=== PATIENT | male | born 1950 | race African-American/Black ===

== ENCOUNTER 2018-06-28 10:15 | Emergency (ER) | payer OTHER ==
[2018-06-28 11:04] LABS: #Monocytes 0.4 thou/uL (0.11-0.59); #Neutrophils 4.9 thou/uL (1.40-6.50); %Basophils 0.6 % (0.0-1.0); %Eosinophils 0.6 % (0.0-10.0); %Lymphocytes 16.2 % (21.0-51.0); %Monocytes 6.1 % (0.0-10.0); %Neutrophils 76.5 % (42.0-75.0); Hemoglobin 15.2 g/dL (14.0-18.0); Mean Corpuscular Hemoglobin 28.1 pg (27.0-31.0); Mean Corpuscular Volume 85.3 fL (78.0-98.0); Mean Platelet Volume 7.3 fL (7.4-10.4); Platelet Count 195 thou/uL (130-400); RBC Distribution Width 11.9 % (11.5-14.5); Red Blood Cell (RBC) Count 5.42 mill/uL (4.70-6.10); White Blood Cell (WBC) Count 6.4 thou/uL (4.8-10.8)
[2018-06-28 11:14] LABS: PTT 25.8 SEC (22.9-36.1); Prothrombin Time 12.8 SEC (12.0-14.7)
[2018-06-28 12:03] LABS: ALT (SGPT) 58 U/L (8-55); AST (SGOT) 45 U/L (5-34); Albumin 3.8 g/dL (3.4-4.8); Alkaline Phosphatase 116 U/L (40-150); Anion Gap 12 mmol/L (10-20); BUN (Urea Nitrogen) 14 mg/dL (8.4-25.7); Bilirubin, Total 1.3 mg/dL (0.2-1.2); Calc. Creatinine Clearance 0 mL/min (70-130); Calcium 8.9 mg/dL (7.8-10.44); Carbon Dioxide 24 mmol/L (23-31); Chloride 105 mmol/L (98-107); Estimated GFR-MDRD 79; Globulin 3.2 g/dL (2.4-3.5); Glucose 187 mg/dL (80-115); Potassium 4.3 mmol/L (3.5-5.1); Sodium 137 mmol/L (136-145)
--- NOTE | 2018-06-28 12:21 | CT ---
CT OF THE BRAIN WITHOUT CONTRAST: INDICATION: A 68-year-old male with slurred speech and inability to follow commands. FINDINGS: There is a triangular-shaped area of heterogeneous hypodensity within the left parietal region best s een on image 92 series 2 suspicious for a subacute cortically based infarct. This is seen on images 21 through 15 of series 2. This is superimposed on moderate chronic small-vessel white matter ischem ic change. There is a remote lacunar infarct involving the left paramedian haily. There is mild gener alized cerebral atrophy. Septum pellucidum and third ventricle are midline. No definite acute intra cranial hemorrhage or hydrocephalus is present. The skull is intact. IMPRESSION: 1. Subacute-appearing infarct involving the left parietal lobe. MRI examination is recommended for further evaluation. 2. Severe chronic small-vessel white matter ischemic change with a paramedian lacunar infarct involv ing the left aspect of the haily. 3. Mild generalized cerebral atrophy. POS: [facility]
[2018-06-28 12:32] LABS: Bilirubin Small (Negative); Blood, Urine Negative (Negative); Clarity CLEAR (Clear); Glucose, Urine (Dipstick) Negative (Negative); Leukocyte Negative (Negative); Nitrite Negative (Negative); Protein, Urine (Dipstick) 300 mg/dL (Neg-Trace); Specific Gravity, Urine 1.018 (1.002-1.036); pH, Urine 5.5 (5.0-9.0)
[2018-06-28 12:35] LABS: Pathc Cast-AUWi Flag 3.63 (0-2.49); RBC/HPF 0-3 HPF (0-3); Squamous Epithelial 0-3 HPF (0-3)
[2018-06-28 12:50] LABS: Bacteria/HPF 1+ HPF (None Seen); Hyaline Casts/LPF 0-3 HYALINE CAST LPF (0-3 Hyaline); Manual Microscopic Reviewed? No Path Casts Seen; Renal Epithelial None Seen HPF (0-3); Transitional Epithelial NONE SEEN HPF (0-3)
--- NOTE | 2018-07-02 16:00 | EKG ---
Test Reason : AMS-RESOLVED Blood Pressure : / mmHG Vent. Rate : 066 BPM Atrial Rate : 066 BPM P-R Int : 146 ms QRS Dur : 088 ms QT Int : 434 ms P-R-T Axes : 043 022 051 degrees QTc Int : 454 ms Normal sinus rhythm Nonspecific T wave abnormality Abnormal ECG Confirmed by LIDIA TATE ([id number]), editor farm journal NOVA PHILIP ([id number]) on 07/02/2018 3:59:49 PM Referred By: Confirmed By:LIDIA TATE
== END 2018-06-28 18:13 | disposition short-term general hospital (02) ==
LOC: ERS 10:15
DX: R41.82 Altered mental status, unspecified (principal); E10.9 Type 1 diabetes mellitus without complications; I10 Essential (primary) hypertension; Z86.73 Personal history of transient ischemic attack (TIA), and cerebral infarction without residual deficits; Z79.899 Other long term (current) drug therapy; Z79.82 Long term (current) use of aspirin; Z79.84 Long term (current) use of oral hypoglycemic drugs
CPT/HCPCS: 36415; 36416; 70450; 80053; 81003; 81015; 84484; 85025; 85610; 85730; 93005; 94760

== ENCOUNTER 2018-07-27 10:36 | Inpatient (IN) | payer OTHER ==
--- NOTE | 2018-07-27 11:06 | CT ---
CT OF THE BRAIN WITHOUT CONTRAST: Date: 07/27/18 COMPARISON: 06/28/18. HISTORY: Stroke. TECHNIQUE: Multiple contiguous axial images were obtained in a CT of the brain without contrast. FINDINGS: There is a hypertensive hemorrhage involving the left basal ganglia measuring 2.4 cm in greatest dime nsion. There is intraventricular extension of the hemorrhage. The lateral ventricles are mildly enlar ged, but unchanged compared to the prior examination. There are scattered hypodensities in subcortica l and periventricular white matter, likely secondary to small vessel ischemic disease. The calvarium and overlying soft tissues are unremarkable. The visualized paranasal sinuses and masto id air cells are well aerated. IMPRESSION: Left basal ganglia hemorrhage is likely a hypertensive hemorrhage. There appears to be intraventricul ar extension of the hemorrhage. Dr. Muñoz notified of the findings at 1052 hours on 07/27/18. CODE CR. POS: [facility]
[2018-07-27 11:33] LABS: #Eosinphils 0.1 thou/uL (0.0-0.7); #Lymphocytes 1.2 thou/uL (1.20-3.40); #Monocytes 0.5 thou/uL (0.11-0.59); #Neutrophils 6.7 thou/uL (1.40-6.50); %Basophils 0.5 % (0.0-1.0); %Eosinophils 0.7 % (0.0-10.0); %Lymphocytes 14.5 % (21.0-51.0); %Monocytes 5.9 % (0.0-10.0); %Neutrophils 78.4 % (42.0-75.0); Mean Corpuscular HGB CONC 32.6 g/dL (32.0-36.0); Mean Corpuscular Hemoglobin 27.5 pg (27.0-31.0); Mean Corpuscular Volume 84.3 fL (78.0-98.0); Mean Platelet Volume 7.7 fL (7.4-10.4); Platelet Count 225 thou/uL (130-400); RBC Distribution Width 12.2 % (11.5-14.5); Red Blood Cell (RBC) Count 5.44 mill/uL (4.70-6.10); White Blood Cell (WBC) Count 8.6 thou/uL (4.8-10.8)
[2018-07-27 11:41] LABS: Prothrombin Time 13.3 SEC (12.0-14.7)
[2018-07-27 11:54] LABS: ALT (SGPT) 47 U/L (8-55); AST (SGOT) 32 U/L (5-34); Alkaline Phosphatase 119 U/L (40-150); Anion Gap 13 mmol/L (10-20); BUN (Urea Nitrogen) 15 mg/dL (8.4-25.7); Bilirubin, Total 1.7 mg/dL (0.2-1.2); CK (CPK) 170 U/L (30-200); Calc. Creatinine Clearance 0 mL/min (70-130); Calcium 9.5 mg/dL (7.8-10.44); Carbon Dioxide 29 mmol/L (23-31); Chloride 104 mmol/L (98-107); Estimated GFR-MDRD Greater than 90; Globulin 3.2 g/dL (2.4-3.5); Glucose 164 mg/dL (80-115); Potassium 3.8 mmol/L (3.5-5.1); Protein, Total 7.2 g/dL (5.8-8.1); Sodium 142 mmol/L (136-145)
[2018-07-27 11:58] LABS: Acetaminophen Less than 6.0 mcg/mL (10.0-30.0); Alcohol Less than 10 mg/dL (Less than 10); Salicylate Less than 8.0 mg/dL (15.0-30.0)
[2018-07-27] MEDS ORDERED: niCARdipine 20MG In NaCl 20 MG/200 ML BAG ONE (12:54)
[2018-07-27] MEDS ORDERED: Dextrose 50% Abboject 50 ML SYRINGE SLOW IVP PRN (15:27)
[2018-07-27] MEDS ORDERED: HumaLOG 300 UNITS/3 ML VIAL SC PRN (15:27)
[2018-07-27] MEDS ORDERED: Dextrose 5% in Water 1,000 ML IV PRN (15:27)
[2018-07-27] MEDS ORDERED: niCARdipine 40MG In NaCl 40 MG/200 ML BAG IVPB SCH (15:30)
[2018-07-27] MEDS ORDERED: Ondansetron PF 4 MG/2 ML Vial IVP PRN (16:09)
[2018-07-27] MEDS ORDERED: Labetalol HCl 100 MG/20 ML VIAL IVPB PRN (16:16)
[2018-07-27] MEDS: Nitroglycerin 2% Ointment 1 INCH/1 GM Packet TOP SCH (16:50)
[2018-07-27] MEDS: Sodium Chloride 0.9% 1,000 ML IV SCH (16:51)
[2018-07-27] MEDS ORDERED: Prevnar 13-Val Conj/PF 0.5 ML SYRINGE IM ONE (17:00)
[2018-07-27] MEDS: niCARdipine HCl 50 MG in Sodium Chloride 0.9% 250 ML 230 ML IVPB SCH ×2 (17:11→21:57)
--- NOTE | 2018-07-27 18:36 | CON ---
DATE OF CONSULTATION: 07/27/2018 REASON FOR CONSULTATION: Hypertensive brain bleed. HISTORY OF PRESENT ILLNESS: The patient is a 68-year-old male, who was brought to the hospital earlier today with decreased responsiveness with gait changes. He was found to have an acute brain bleed in the region of his left basal ganglia. There was extension into the third ventricle. He was treated with nitroglycerin paste. Subsequently placed on a Cardene drip to get his blood pressure under control. The patient when arrived, his pressure was noted to be above 200. PAST MEDICAL HISTORY: Per ER report in June, he has a history of diabetes mellitus, hypertension, hepatitis C, stroke, and osteoarthritis. PAST SURGICAL HISTORY: Not known at this time. SOCIAL HISTORY: He is incarcerated. Does not drink. Does not smoke, but not sure about use in the past. ALLERGIES: NONE. MEDICATIONS: Prior to admission; 1. Aspirin 81 mg daily. 2. Atorvastatin 10 mg daily. 3. Lisinopril 2.5 mg daily. 4. Carvedilol 25 mg daily. 5. Plavix 75 mg daily. 6. Minoxidil 2.5 mg daily. 7. Novolin insulin 50 units subcu every morning. 8. R insulin sliding scale. 9. Metformin 1000 mg b.i.d. 10. Hydrochlorothiazide 12.5 mg daily. REVIEW OF SYSTEMS: A 12-point review of systems is otherwise negative. FAMILY MEDICAL HISTORY: Unknown. ALLERGIES: NONE. PHYSICAL EXAMINATION: VITAL SIGNS: Currently, he is on a nicardipine drip. His pulse is 101, blood pressure 149/89, O2 saturation 99%, and respiratory rate 22. GENERAL: He is easily arousable. He cooperates with the exam. NEUROLOGIC: He has no focality. His pupils are reactive. Sclerae anicteric. Tongue protrudes midline. NECK: No adenopathy. No JVD or bruits. LUNGS: Clear to auscultation without wheezing rhonchi. CARDIAC: S1 and S2. Regular without murmur. ABDOMEN: Soft and nontender. No hepatosplenomegaly. EXTREMITIES: No clubbing, cyanosis, or edema. He moves all 4 extremities without difficulty. Has 5/5 muscle strength throughout. LABORATORY DATA: White count 8.6, hematocrit 45.8, and platelet count is 225. INR 1.0 and PTT 27.0. Sodium 142, potassium 3.8, chloride 104, CO2 of 29, BUN 15, creatinine 0.9, and glucose 164. Troponin 0.01. Alcohol level was less than 10. Brain CT was reviewed. ASSESSMENT AND PLAN: 1. Hypertensive brain bleed. 2. History of diabetes mellitus. 3. History of hypertension. 4. Question history of previous stroke given that he is on Plavix plan withhold Boom anticoagulation. 5. Blood pressure control with nicardipine. 6. Deep venous thrombosis prophylaxis with sequential compression devices. 7. Gastrointestinal prophylaxis with Pepcid. 8. Withhold his metformin at the current time as further contrasting imaging studies may need to be done. Manage his diabetes with sliding scale insulin. Job ID: [id number]
[2018-07-27] MEDS: Famotidine/PF 20 mg/2ml Vial SLOW IVP SCH (21:03)
[2018-07-27] MEDS: Labetalol HCl 100 MG/20 ML VIAL IVPB PRN (21:04)
--- NOTE | 2018-07-27 23:02 | HP ---
This is a 50-minute initial patient evaluation of which greater than 50% of the exam was spent in counseling and coordinating the patient's care. Remainder of the exam was spent in review of patient's medical records and formulation of treatment plan, as well as review of appropriate imaging studies. CHIEF COMPLAINT: Altered mental status with left basal ganglia hemorrhage. HISTORY OF PRESENT ILLNESS: Mr. Waggoner is a 68-year-old male who is an inmate, who was found with altered mental status earlier this morning. He apparently was significantly confused, although does have a history of CVA he is not on any blood thinners. He was transferred to [facility] and a head CT was obtained showing a left thalamic bleed. His presenting systolic blood pressure was in the 200s. on exam, the patient is mostly nonverbal and has some expressive aphasia, so his history is limited. His current blood pressure is ranged in the 160s. Neurosurgery is asked to consult regarding this. PHYSICAL EXAMINATION: The patient is awake, alert, and appropriate. He is mainly nonverbal, though attempts to appropriately answer questions. He has no slurred speech. He is able to follow commands equally in all four extremities and does not appear to have any right-sided weakness, though he is handcuffed. His pupils are equal, round, and minimally reactive bilaterally. GCS currently is 15, although again the patient does have expressive aphasia as he is unable to tell me that he is in a hospital, but states that he knows that he is in a place . IMPRESSION AND DIAGNOSIS: Altered mental status and hypertension with left thalamic bleed. PLAN: I have discussed the patient's case and imaging with Dr. Pro. At this time, the patient does not require neurosurgical intervention nor does he require EVD placement as he has no enlarged ventricles. Nonetheless, we will keep him n.p.o. I would like his systolic blood pressure less than 140 and at this time, he is on a Cardene drip. We will do q.1 hour neuro checks. Head of bed will be elevated at 30 degrees. We will follow up with a repeat head CT in the morning. Certainly, sooner should his neurologic status decline, but at this time again, the patient does not require neurosurgical intervention. Please call with any changes in patient's neurologic status. Job ID: [id number]
[2018-07-28] MEDS: Sodium Chloride 0.9% 1,000 ML IV SCH (00:22)
[2018-07-28] MEDS: Nitroglycerin 2% Ointment 1 INCH/1 GM Packet TOP SCH (00:26)
[2018-07-28] MEDS: niCARdipine HCl 50 MG in Sodium Chloride 0.9% 250 ML 230 ML IVPB SCH ×3 (00:58→10:33)
[2018-07-28] MEDS: Labetalol HCl 100 MG/20 ML VIAL IVPB PRN (02:39)
[2018-07-28 06:21] LABS: #Basophils 0.1 thou/uL (0.0-0.2); #Eosinphils 0.1 thou/uL (0.0-0.7); #Lymphocytes 1.2 thou/uL (1.20-3.40); #Monocytes 0.7 thou/uL (0.11-0.59); #Neutrophils 5.7 thou/uL (1.40-6.50); %Basophils 0.6 % (0.0-1.0); %Eosinophils 0.8 % (0.0-10.0); %Monocytes 9.4 % (0.0-10.0); %Neutrophils 74.2 % (42.0-75.0); Hemoglobin 16.5 g/dL (14.0-18.0); Mean Corpuscular Hemoglobin 27.7 pg (27.0-31.0); Mean Corpuscular Volume 89.3 fL (78.0-98.0); Mean Platelet Volume 7.8 fL (7.4-10.4); Platelet Count 167 thou/uL (130-400); RBC Distribution Width 12.3 % (11.5-14.5); Red Blood Cell (RBC) Count 5.95 mill/uL (4.70-6.10); White Blood Cell (WBC) Count 7.7 thou/uL (4.8-10.8)
[2018-07-28 06:26] LABS: Anion Gap 18 mmol/L (10-20); BUN (Urea Nitrogen) 15 mg/dL (8.4-25.7); Calc. Creatinine Clearance 0 mL/min (70-130); Calcium 8.7 mg/dL (7.8-10.44); Carbon Dioxide 16 mmol/L (23-31); Chloride 112 mmol/L (98-107); Estimated GFR-MDRD Greater than 90; Glucose 140 mg/dL (80-115); Sodium 142 mmol/L (136-145)
--- NOTE | 2018-07-28 07:30 | CT ---
CT HEAD NONCONTRAST: Date: 07/28/18 INDICATION: Follow-up intracranial hemorrhage, left basal ganglia. Reference made to head CT from previous day. FINDINGS: Interval redemonstration of recent hemorrhage centered within the left thalamus with intraventricular extension of hemorrhage, which has progressed in volume, and is predominantly located within the dep endent portion of each lateral ventricle. Moderate chronic ischemic disease is redemonstrated. Slight size progression of the ventricles. There is a lacunar infarction of the anterior right scott radia ta. IMPRESSION: 1. Redemonstration of recent hemorrhage centered within the left thalamus with increasing volume of intraventricular hemorrhage and slight size expansion of the ventricles. Recommend continued follow-u p. 2. Moderate chronic ischemic disease with superimposed lacunar infarction of the anterior right caden na radiata. POS: [facility]
--- NOTE | 2018-07-28 08:36 | PRG ---
DATE OF SERVICE: 07/28/2018 SUBJECTIVE: Mr. Waggoner is doing well, has no acute complaints. OBJECTIVE: VITAL SIGNS: On exam, his temperature is 98.5, pulse 96, blood pressure 130/66, O2 saturation 99%. Intake since admission 2569, output 450. HEENT: Pupils reactive. Extraocular movements intact. Oropharynx clear. Tongue protrudes midline. NECK: No JVD. CHEST: Clear to auscultation without wheezing. CARDIAC: S1, S2. Regular. ABDOMEN: Soft, nontender. EXTREMITIES: No edema. LABORATORY DATA: Sodium 142, potassium 4.0, chloride 112, CO2 of 16, BUN 15, creatinine 0.8, glucose 140. White blood cell count 7.7, hematocrit 53.1, and platelet count 167. IMAGING: His brain CT shows just a slight increase in size of the thalamic bleed compared to yesterday. ASSESSMENT: 1. Intracranial bleed, most likely from hypertension. 2. Stable neurologic status. 3. Malignant hypertension. PLAN: 1. Continue nicardipine, so patient is able to take oral medication . 2. Diabetes with sliding scale insulin for the time being. Job ID: [id number]
[2018-07-28] MEDS: Famotidine/PF 20 mg/2ml Vial SLOW IVP SCH (10:33)
[2018-07-28] MEDS ORDERED: Atorvastatin Calcium 40 MG TAB PO SCH (10:45)
[2018-07-28] MEDS ORDERED: Carvedilol 6.25 MG TAB PO SCH (10:45)
[2018-07-28] MEDS ORDERED: Lisinopril 5 MG TAB PO SCH ×2 (10:45→21:00)
[2018-07-28] MEDS ORDERED: Minoxidil 2.5 MG TAB PO SCH ×2 (10:45→21:00)
--- NOTE | 2018-07-28 11:10 | PRG ---
DATE OF SERVICE: This is a 30-minute initial hospital visit note, in which 30 minutes were spent reviewing the imaging, record evaluation, examination of the patient, formulation of plan. Greater than 50% time was spent in counseling on José Waggoner. I reviewed the notes of my colleague, Tariq Lemus PA-C, reviewed his content. SUBJECTIVE: Mr. Waggoner is a 68-year-old man, who is incarcerated, presented with hypertension, and was found to have a left basal ganglia thalamic hemorrhage related to hypertension. This has remained essentially stable. There is some intraventricular extension, but the patient, other than right-sided hemiparesis, is alert and appropriate. He is undergoing swallow evaluation. We will continue to work on keeping his systolic blood pressure below 140 and his diastolic blood pressure below 90. I would be fine with transfer to the stroke floor however as long as his blood pressure is under control. Job ID: [id number]
[2018-07-28] MEDS: HumaLOG 300 UNITS/3 ML VIAL SC PRN (12:23)
[2018-07-28] MEDS ORDERED: Hydrochlorothiazide 25 MG TAB PO SCH (13:30)
[2018-07-28] MEDS ORDERED: NIFEdipine XL 60 MG TAB PO SCH (13:30)
--- NOTE | 2018-07-28 14:45 | PDOC.PN ---
- Subjective Encounter Start Date: 07/28/18 Encounter Start Time: 10:00 Subjective: awake, wants to get up and pass urine -: no sob or palp or chest pain -: is moving all extremities, responds to verbal questions but trails off at t - Objective MAR Reviewed: Yes Vital Signs & Weight: Vital Signs (12 hours) Temp Pulse BP Pulse Ox 07/28/18 13:29 96 148/83 H 07/28/18 12:00 98.6 F 07/28/18 10:47 116/72 07/28/18 10:46 103 H 116/72 07/28/18 08:00 98.7 F 98 07/28/18 04:00 98.5 F Weight Weight 182 lb 12.211 oz Most Recent Monitor Data Heart Rate from ECG 95 NIBP 145/83 NIBP BP-Mean 103 Respiration from ECG 19 SpO2 98 I&O: 07/27/18 07/28/18 07/29/18 06:59 06:59 06:59 Intake Total 2559 300 Output Total 450 701 Balance 2109 -401 Result Diagrams: 07/28/18 06:01 07/28/18 06:01 Additional Labs: Accuchecks 07/28/18 07/28/18 07/27/18 12:07 06:01 21:10 POC Glucose 178 H 127 H 115 H 07/27/18 16:19 POC Glucose 138 H Phys Exam - Physical Examination HEENT: PERRLA, moist MMs Neck: no JVD, supple Respiratory: no wheezing, no rales Cardiovascular: RRR, no significant murmur Gastrointestinal: soft, non-tender, positive bowel sounds Musculoskeletal: no edema, pulses present Neurological: non-focal, moves all 4 limbs Dx/Plan (1) ICH (intracerebral hemorrhage) Code(s): I61.9 - NONTRAUMATIC INTRACEREBRAL HEMORRHAGE, UNSPECIFIED Status: Acute Qualifiers: Intracerebral hemorrhage etiology: nontraumatic Cerebral hemorrhage location: cerebral hemisphere, unspecified portion Laterality: left Qualified Code(s): I61.2 - Nontraumatic intracerebral hemorrhage in hemisphere, unspecified Comment: left Basal ganglia with intravent extension, right hemiparesis mild (2) Hypertensive emergency Code(s): I16.1 - HYPERTENSIVE EMERGENCY Status: Acute Comment: resolving (3) Dyslipidemia Code(s): E78.5 - HYPERLIPIDEMIA, UNSPECIFIED Status: Chronic (4) DM type 2 (diabetes mellitus, type 2) Status: Chronic Qualifiers: Diabetes mellitus international marketing manager insulin use: with international marketing manager use Diabetes mellitus complication status: with unspecified complications Qualified Code(s) : E11.8 - Type 2 diabetes mellitus with unspecified complications; Z79.4 - past due accounts clerk (current) use of insulin - Plan has been cleared by speech for oral intake -: start coreg, procardia, clonidine, lisinopril, hctz and minoxidil -: humalog ac and hs with mild coverage for today, will add his home dose from -: september tx to stroke unit -: PT/OT/speech eval, september pt to medical service * . Review of Systems - Medications/Allergies Allergies/Adverse Reactions: Allergies Allergy/AdvReac Type Severity Reaction Status Date / Time No Known Allergies Allergy Verified 07/27/18 12:52 Medications: Current Medications Atorvastatin Calcium (Lipitor) 80 mg PO HS [facility] Carvedilol (Coreg) 12.5 mg PO BID [facility] Clonidine (Catapres) 0.2 mg PO TID MAT[facility]U Last Admin: 07/28/18 13:29 Dose: 0.2 mg Dextrose/Water (Dextrose 50%) 25 gm SLOW IVP PRN PRN PRN Reason: Hypoglycemia Famotidine (Pepcid) 20 mg PO BID [facility] Glucagon (Glucagon) 1 mg IM PRN PRN PRN Reason: Hypoglycemia Hydrochlorothiazide (Hydrochlorothiazide) 25 mg PO DAILY [facility] Hydrochlorothiazide (Hydrochlorothiazide) 25 mg PO NOW [facility] Stop: 07/28/18 15:30 Last Admin: 07/28/18 13:28 Dose: 25 mg Dextrose/Water (D5w) 1,000 mls @ 0 mls/hr IV .Q0M PRN PRN Reason: Hypoglycemia Nicardipine HCl 50 mg/ Sodium (Chloride) 250 mls @ 0 mls/hr IVPB INF MATTHIEU; Protocol Last Admin: 07/28/18 10:33 Dose: 250 mls Insulin Human Lispro (Humalog) 0 units SC .AGGRESSIVE SLIDING PRN PRN Reason: Aggressive Correctional Scale Last Admin: 07/28/18 12:23 Dose: 3 units Insulin Human Lispro (Humalog) 0 units SC .BEDTIME SLIDING SC PRN PRN Reason: Bedtime Correctional Scale Lisinopril (Zestril) 20 mg PO BID [facility] Minoxidil (Minoxidil) 2.5 mg PO BID [facility] Nifedipine (Procardia Xl) 60 mg PO DAILY [facility] Nifedipine (Procardia Xl) 60 mg PO NOW [facility] Stop: 07/28/18 15:30 Last Admin: 07/28/18 13:29 Dose: 60 mg Sodium Chloride (Flush - Normal Saline) 10 ml IVF Q12HR [facility] Last Admin: 07/28/18 10:34 Dose: 10 ml Sodium Chloride (Flush - Normal Saline) 10 ml IVF PRN PRN PRN Reason: Saline Flush
[2018-07-28] MEDS ORDERED: cloNIDine 0.2 MG TAB PO SCH (15:00)
[2018-07-28] MEDS ORDERED: Tamsulosin HCl 0.4 MG CAP PO SCH (16:00)
[2018-07-28] MEDS: Atorvastatin Calcium 40 MG TAB PO SCH (20:16)
[2018-07-28] MEDS: Carvedilol 6.25 MG TAB PO SCH (20:17)
[2018-07-28] MEDS: Lisinopril 20 MG TAB PO SCH (20:18)
[2018-07-28] MEDS: Famotidine 20 MG TAB PO SCH (20:18)
[2018-07-28] MEDS: cloNIDine 0.1 MG TAB PO SCH (20:18)
[2018-07-28] MEDS: Minoxidil 2.5 MG TAB PO SCH (20:19)
[2018-07-28] MEDS ORDERED: Carvedilol 25 MG TAB PO SCH (21:00)
[2018-07-28] MEDS ORDERED: Lisinopril 2.5 MG TAB PO SCH (21:00)
[2018-07-29 05:52] LABS: Hemoglobin A1c 8.3 % (4.0-6.0)
[2018-07-29 06:04] LABS: #Eosinphils 0.1 thou/uL (0.0-0.7); #Lymphocytes 1.1 thou/uL (1.20-3.40); #Monocytes 0.6 thou/uL (0.11-0.59); #Neutrophils 5.2 thou/uL (1.40-6.50); %Basophils 0.2 % (0.0-1.0); %Eosinophils 1.4 % (0.0-10.0); %Lymphocytes 16.3 % (21.0-51.0); %Monocytes 8.6 % (0.0-10.0); %Neutrophils 73.6 % (42.0-75.0); Hemoglobin 13.5 g/dL (14.0-18.0); Mean Corpuscular Hemoglobin 27.8 pg (27.0-31.0); Mean Corpuscular Volume 86.8 fL (78.0-98.0); Mean Platelet Volume 7.6 fL (7.4-10.4); Platelet Count 200 thou/uL (130-400); RBC Distribution Width 12.1 % (11.5-14.5); Red Blood Cell (RBC) Count 4.86 mill/uL (4.70-6.10)
[2018-07-29 06:05] LABS: Anion Gap 13 mmol/L (10-20); BUN (Urea Nitrogen) 17 mg/dL (8.4-25.7); Calc. Creatinine Clearance 90 mL/min (70-130); Calcium 8.5 mg/dL (7.8-10.44); Carbon Dioxide 22 mmol/L (23-31); Chloride 106 mmol/L (98-107); Estimated GFR-MDRD Greater than 90; Glucose 196 mg/dL (80-115); Potassium 3.5 mmol/L (3.5-5.1); Sodium 137 mmol/L (136-145)
[2018-07-29] MEDS: HumaLOG 300 UNITS/3 ML VIAL SC PRN ×3 (06:42→17:29)
[2018-07-29] MEDS ORDERED: NIFEdipine XL 60 MG TAB PO SCH (09:00)
[2018-07-29] MEDS ORDERED: Atorvastatin Calcium 10 MG TAB PO SCH (09:00)
[2018-07-29] MEDS: Lisinopril 20 MG TAB PO SCH ×2 (10:09→20:42)
[2018-07-29] MEDS: Minoxidil 2.5 MG TAB PO SCH ×2 (10:10→20:44)
[2018-07-29] MEDS: Hydrochlorothiazide 25 MG TAB PO SCH (10:10)
[2018-07-29] MEDS: cloNIDine 0.1 MG TAB PO SCH ×3 (10:10→20:43)
[2018-07-29] MEDS: Famotidine 20 MG TAB PO SCH ×2 (10:10→20:43)
[2018-07-29] MEDS: Carvedilol 6.25 MG TAB PO SCH ×2 (10:11→20:43)
--- NOTE | 2018-07-29 13:54 | PDOC.PN ---
- Subjective Encounter Start Date: 07/29/18 Encounter Start Time: 09:45 Subjective: awake, not fully oriented -: follows verbal stimuli -: has tried to amb with PT in the room - Objective MAR Reviewed: Yes Vital Signs & Weight: Vital Signs (12 hours) Temp Pulse Pulse Pulse Resp BP BP 07/29/18 11:59 98.5 F 68 18 07/29/18 10:11 136/68 07/29/18 10:10 136/68 07/29/18 10:09 134/66 07/29/18 09:15 87 80 134/66 07/29/18 08:05 07/29/18 07:51 98.8 F 89 20 07/29/18 03:45 07/29/18 03:30 98.8 F 79 18 BP BP Pulse Ox 07/29/18 11:59 112/62 99 07/29/18 10:11 07/29/18 10:10 07/29/18 10:09 07/29/18 09:15 126/65 07/29/18 08:05 100 07/29/18 07:51 118/70 100 07/29/18 03:45 100 07/29/18 03:30 131/66 100 Weight Weight 175 lb 5 oz Most Recent Monitor Data Heart Rate from ECG 80 NIBP 127/76 NIBP BP-Mean 93 Respiration from ECG 15 SpO2 100 I&O: 07/28/18 07/29/18 07/30/18 06:59 06:59 06:59 Intake Total 2559 1080 400 Output Total 450 703 Balance 2109 377 400 Result Diagrams: 07/29/18 05:04 07/29/18 05:04 Additional Labs: Accuchecks 07/29/18 07/29/18 07/28/18 10:44 06:04 20:25 POC Glucose 194 H 197 H 219 H 07/28/18 16:20 POC Glucose 152 H Phys Exam - Physical Examination HEENT: PERRLA, moist MMs Neck: no JVD, supple Respiratory: no wheezing, no rales Cardiovascular: RRR, no significant murmur Gastrointestinal: soft, non-tender, positive bowel sounds Musculoskeletal: no edema, pulses present Neurological: moves all 4 limbs right hemiparesis with strength of 3/5 Dx/Plan (1) ICH (intracerebral hemorrhage) Code(s): I61.9 - NONTRAUMATIC INTRACEREBRAL HEMORRHAGE, UNSPECIFIED Status: Acute Qualifiers: Intracerebral hemorrhage etiology: nontraumatic Cerebral hemorrhage location: cerebral hemisphere, unspecified portion Laterality: left Qualified Code(s): I61.2 - Nontraumatic intracerebral hemorrhage in hemisphere, unspecified Comment: left Basal ganglia with intravent extension, right hemiparesis (2) Hypertensive emergency Code(s): I16.1 - HYPERTENSIVE EMERGENCY Status: Resolved (3) Dyslipidemia Code(s): E78.5 - HYPERLIPIDEMIA, UNSPECIFIED Status: Chronic (4) DM type 2 (diabetes mellitus, type 2) Status: Chronic Qualifiers: Diabetes mellitus jail insulin use: with jail use Diabetes mellitus complication status: with hyperglycemia Qualified Code(s): E11.65 - Type 2 diabetes mellitus with hyperglycemia; Z79.4 - skilled nursing (current) use of insulin - Plan will need [facility] for 4 weeks with PT/OT therapies at [facility] -: htn is stable on coreg, clonidine, hctz, lisinopril and minoxidil -: start metformin and low dose nph -: continue PT/OT -: no dysphagia, dc plan in am * . Review of Systems - Medications/Allergies Allergies/Adverse Reactions: Allergies Allergy/AdvReac Type Severity Reaction Status Date / Time No Known Allergies Allergy Verified 07/27/18 12:52 Medications: Current Medications Atorvastatin Calcium (Lipitor) 80 mg PO HS [facility] Last Admin: 07/28/18 20:16 Dose: 80 mg Carvedilol (Coreg) 12.5 mg PO BID [facility] Last Admin: 07/29/18 10:11 Dose: 12.5 mg Clonidine (Catapres) 0.1 mg PO TID [facility] Last Admin: 07/29/18 10:10 Dose: 0.1 mg Dextrose/Water (Dextrose 50%) 25 gm SLOW IVP PRN PRN PRN Reason: Hypoglycemia Famotidine (Pepcid) 20 mg PO BID [facility] Last Admin: 07/29/18 10:10 Dose: 20 mg Glucagon (Glucagon) 1 mg IM PRN PRN PRN Reason: Hypoglycemia Hydrochlorothiazide (Hydrochlorothiazide) 25 mg PO DAILY [facility] Last Admin: 07/29/18 10:10 Dose: 25 mg Dextrose/Water (D5w) 1,000 mls @ 0 mls/hr IV .Q0M PRN PRN Reason: Hypoglycemia Insulin Human Lispro (Humalog) 0 units SC .AGGRESSIVE SLIDING PRN PRN Reason: Aggressive Correctional Scale Last Admin: 07/29/18 12:07 Dose: 3 units Insulin Human Lispro (Humalog) 0 units SC .BEDTIME SLIDING SC PRN PRN Reason: Bedtime Correctional Scale Last Admin: 07/28/18 20:24 Dose: 2 unit Lisinopril (Zestril) 20 mg PO BID [facility] Last Admin: 07/29/18 10:09 Dose: 20 mg Minoxidil (Minoxidil) 2.5 mg PO BID [facility] Last Admin: 07/29/18 10:10 Dose: 2.5 mg Sodium Chloride (Flush - Normal Saline) 10 ml IVF Q12HR [facility] Last Admin: 07/29/18 10:11 Dose: 10 ml Sodium Chloride (Flush - Normal Saline) 10 ml IVF PRN PRN PRN Reason: Saline Flush
--- NOTE | 2018-07-29 17:16 | PRG ---
DATE OF SERVICE: 07/29/2018 This is a 15-minute subsequent visit note, in which 15 minutes were spent in review of the imaging, record evaluation, examination of the patient, formulation with plan. Greater than 50% time spent in counseling on José Waggoner. SUBJECTIVE: Mr. Waggoner continues to recover from his left basal ganglia and thalamic region, intraparenchymal hemorrhage related to hypertension. He is able to move his right side with moderate weakness, but this is encouraging. He is alert as well. We will follow with head CT in 1 month and at this point, I will sign off care to limit his medical colleagues. Job ID: [id number]
[2018-07-29] MEDS ORDERED: Fleet Enema 133 ML BOT PR SCH (20:30)
[2018-07-29] MEDS: metFORMIN 500 MG TAB PO SCH (20:43)
[2018-07-29] MEDS: Docusate 100 MG CAP PO SCH (20:44)
[2018-07-29] MEDS: Atorvastatin Calcium 40 MG TAB PO SCH (20:44)
[2018-07-30 05:29] LABS: #Eosinphils 0.1 thou/uL (0.0-0.7); #Lymphocytes 1.4 thou/uL (1.20-3.40); #Monocytes 0.7 thou/uL (0.11-0.59); #Neutrophils 4.2 thou/uL (1.40-6.50); %Basophils 0.2 % (0.0-1.0); %Eosinophils 1.8 % (0.0-10.0); %Lymphocytes 21.5 % (21.0-51.0); %Monocytes 10.6 % (0.0-10.0); %Neutrophils 65.9 % (42.0-75.0); Hemoglobin 13.6 g/dL (14.0-18.0); Mean Corpuscular HGB CONC 33.3 g/dL (32.0-36.0); Mean Corpuscular Hemoglobin 28.7 pg (27.0-31.0); Mean Corpuscular Volume 86.1 fL (78.0-98.0); Mean Platelet Volume 7.3 fL (7.4-10.4); Platelet Count 162 thou/uL (130-400); RBC Distribution Width 11.9 % (11.5-14.5); Red Blood Cell (RBC) Count 4.73 mill/uL (4.70-6.10); White Blood Cell (WBC) Count 6.3 thou/uL (4.8-10.8)
[2018-07-30 05:52] LABS: Anion Gap 12 mmol/L (10-20); BUN (Urea Nitrogen) 16 mg/dL (8.4-25.7); Calc. Creatinine Clearance 110 mL/min (70-130); Calcium 8.4 mg/dL (7.8-10.44); Carbon Dioxide 21 mmol/L (23-31); Chloride 106 mmol/L (98-107); Estimated GFR-MDRD Greater than 90; Glucose 164 mg/dL (80-115); Potassium 3.2 mmol/L (3.5-5.1); Sodium 136 mmol/L (136-145)
[2018-07-30] MEDS: Carvedilol 6.25 MG TAB PO SCH ×2 (08:46→21:57)
[2018-07-30] MEDS: cloNIDine 0.1 MG TAB PO SCH ×3 (08:47→21:57)
[2018-07-30] MEDS: Docusate 100 MG CAP PO SCH ×2 (08:47→21:58)
[2018-07-30] MEDS: Famotidine 20 MG TAB PO SCH ×2 (08:47→21:58)
[2018-07-30] MEDS: Hydrochlorothiazide 25 MG TAB PO SCH (08:47)
[2018-07-30] MEDS: Lisinopril 20 MG TAB PO SCH ×2 (08:47→21:55)
[2018-07-30] MEDS: Minoxidil 2.5 MG TAB PO SCH ×2 (08:48→21:57)
[2018-07-30] MEDS: Polyethylene Glycol 3350 17 GM Packet PO SCH (08:48)
[2018-07-30] MEDS: metFORMIN 500 MG TAB PO SCH ×2 (08:48→21:57)
[2018-07-30] MEDS: NPH, Human Insulin Isophane 300 UNIT/3 ML VIAL SC SCH (08:48)
[2018-07-30] MEDS: HumaLOG 300 UNITS/3 ML VIAL SC PRN (11:06)
--- NOTE | 2018-07-30 12:03 | PDOC.PN ---
- Subjective Encounter Start Date: 07/30/18 Encounter Start Time: 08:45 Subjective: awake, follows verbal stimuli -: is moving all extremities -: ate his breakfast - Objective MAR Reviewed: Yes Vital Signs & Weight: Vital Signs (12 hours) Temp Pulse Resp BP BP Pulse Ox 07/30/18 08:47 142/85 H 07/30/18 08:46 142/85 H 07/30/18 07:50 98 07/30/18 07:42 98.7 F 70 18 142/85 H 98 07/30/18 03:49 98.4 F 73 17 140/78 95 Weight Weight 177 lb 3.2 oz Most Recent Monitor Data Heart Rate from ECG 80 NIBP 127/76 NIBP BP-Mean 93 Respiration from ECG 15 SpO2 100 I&O: 07/29/18 07/30/18 07/31/18 06:59 06:59 07:59 Intake Total 1080 850 300 Output Total 703 Balance 377 850 300 Result Diagrams: 07/30/18 05:18 07/30/18 05:18 Additional Labs: Accuchecks 07/30/18 07/29/18 07/29/18 05:30 20:36 17:07 POC Glucose 169 H 136 H 215 H Phys Exam - Physical Examination HEENT: PERRLA, moist MMs Neck: no JVD, supple Respiratory: no wheezing, no rales Cardiovascular: RRR, no significant murmur Gastrointestinal: soft, non-tender, positive bowel sounds Musculoskeletal: no edema, pulses present right hemiparesis Psychiatric: A&O x 3 Dx/Plan (1) ICH (intracerebral hemorrhage) Code(s): I61.9 - NONTRAUMATIC INTRACEREBRAL HEMORRHAGE, UNSPECIFIED Status: Acute Qualifiers: Intracerebral hemorrhage etiology: nontraumatic Cerebral hemorrhage location: cerebral hemisphere, unspecified portion Laterality: left Qualified Code(s): I61.2 - Nontraumatic intracerebral hemorrhage in hemisphere, unspecified Comment: left Basal ganglia with intravent extension, right hemiparesis (2) Hypertensive emergency Code(s): I16.1 - HYPERTENSIVE EMERGENCY Status: Resolved (3) Dyslipidemia Code(s): E78.5 - HYPERLIPIDEMIA, UNSPECIFIED Status: Chronic (4) DM type 2 (diabetes mellitus, type 2) Status: Chronic Qualifiers: Diabetes mellitus chcf insulin use: with chcf use Diabetes mellitus complication status: with hyperglycemia Qualified Code(s): E11.65 - Type 2 diabetes mellitus with hyperglycemia; Z79.4 - group home (current) use of insulin - Plan htn is well controlled now -: he is ambulating in the room, will try to amb in hallway today with PT -: pt will need infirmary for atleast 3 weeks -: continue lipitor, coreg, clonidine, hctz, lisinopril and minoxidil -: nph insulin and metformin, encourage po intake, dc plan in am * . Review of Systems - Medications/Allergies Allergies/Adverse Reactions: Allergies Allergy/AdvReac Type Severity Reaction Status Date / Time No Known Allergies Allergy Verified 07/27/18 12:52 Medications: Current Medications Atorvastatin Calcium (Lipitor) 80 mg PO [facility] Last Admin: 07/29/18 20:44 Dose: 80 mg Carvedilol (Coreg) 12.5 mg PO BID [facility] Last Admin: 07/30/18 08:46 Dose: 12.5 mg Clonidine (Catapres) 0.1 mg PO TID [facility] Last Admin: 07/30/18 08:47 Dose: 0.1 mg Dextrose/Water (Dextrose 50%) 25 gm SLOW IVP PRN PRN PRN Reason: Hypoglycemia Docusate Sodium (Colace) 100 mg PO BID [facility] Last Admin: 07/30/18 08:47 Dose: 100 mg Famotidine (Pepcid) 20 mg PO BID [facility] Last Admin: 07/30/18 08:47 Dose: 20 mg Glucagon (Glucagon) 1 mg IM PRN PRN PRN Reason: Hypoglycemia Hydrochlorothiazide (Hydrochlorothiazide) 25 mg PO DAILY [facility] Last Admin: 07/30/18 08:47 Dose: 25 mg Dextrose/Water (D5w) 1,000 mls @ 0 mls/hr IV .Q0M PRN PRN Reason: Hypoglycemia Insulin Human Lispro (Humalog) 0 units SC .AGGRESSIVE SLIDING PRN PRN Reason: Aggressive Correctional Scale Last Admin: 07/30/18 11:06 Dose: 3 units Insulin Human Lispro (Humalog) 0 units SC .BEDTIME SLIDING SC PRN PRN Reason: Bedtime Correctional Scale Last Admin: 07/28/18 20:24 Dose: 2 unit Insulin Human NPH (Humulin N) 10 unit SC DAILY-[facility] Last Admin: 07/30/18 08:48 Dose: 10 unit Lisinopril (Zestril) 20 mg PO BID [facility] Last Admin: 07/30/18 08:47 Dose: 20 mg Metformin HCl (Glucophage) 500 mg PO BID [facility] Last Admin: 07/30/18 08:48 Dose: 500 mg Minoxidil (Minoxidil) 2.5 mg PO BID [facility] Last Admin: 07/30/18 08:48 Dose: 2.5 mg Polyethylene Glycol (Miralax) 17 gm PO DAILY [facility] Last Admin: 07/30/18 08:48 Dose: 17 gm Potassium Chloride (K-Dur) 40 meq PO ONE [facility] Potassium Chloride (K-Dur) 20 meq PO QAM-WM [facility] Sodium Chloride (Flush - Normal Saline) 10 ml IVF Q12HR [facility] Last Admin: 07/30/18 09:07 Dose: Not Given Sodium Chloride (Flush - Normal Saline) 10 ml IVF PRN PRN PRN Reason: Saline Flush
[2018-07-30] MEDS ORDERED: Potassium Chloride 20 MEQ TAB PO SCH (12:15)
--- NOTE | 2018-07-30 20:33 | EKG ---
Test Reason : STROKE ALERT Blood Pressure : / mmHG Vent. Rate : 094 BPM Atrial Rate : 094 BPM P-R Int : 154 ms QRS Dur : 090 ms QT Int : 364 ms P-R-T Axes : 063 046 022 degrees QTc Int : 455 ms Normal sinus rhythm Possible Left atrial enlargement Borderline ECG Confirmed by CRISTY TINEO MD ([id number]), art editor NOVA PHILIP ([id number] on 07/30/2018 8:32:50 PM Referred By: Confirmed By:CRISTY TINEO MD
[2018-07-30] MEDS: Atorvastatin Calcium 40 MG TAB PO SCH (21:58)
[2018-07-31 06:07] LABS: #Eosinphils 0.1 thou/uL (0.0-0.7); #Lymphocytes 1.6 thou/uL (1.20-3.40); #Monocytes 0.5 thou/uL (0.11-0.59); #Neutrophils 3.2 thou/uL (1.40-6.50); %Basophils 0.5 % (0.0-1.0); %Eosinophils 1.7 % (0.0-10.0); %Lymphocytes 29.8 % (21.0-51.0); %Monocytes 9.1 % (0.0-10.0); %Neutrophils 58.9 % (42.0-75.0); Hemoglobin 12.1 g/dL (14.0-18.0); Mean Corpuscular HGB CONC 32.5 g/dL (32.0-36.0); Mean Corpuscular Hemoglobin 27.8 pg (27.0-31.0); Mean Corpuscular Volume 85.8 fL (78.0-98.0); Mean Platelet Volume 7.4 fL (7.4-10.4); Platelet Count 164 thou/uL (130-400); RBC Distribution Width 11.8 % (11.5-14.5); Red Blood Cell (RBC) Count 4.36 mill/uL (4.70-6.10); White Blood Cell (WBC) Count 5.4 thou/uL (4.8-10.8)
[2018-07-31 06:27] LABS: Anion Gap 10 mmol/L (10-20); BUN (Urea Nitrogen) 12 mg/dL (8.4-25.7); Calc. Creatinine Clearance 102 mL/min (70-130); Calcium 8.2 mg/dL (7.8-10.44); Carbon Dioxide 26 mmol/L (23-31); Chloride 105 mmol/L (98-107); Estimated GFR-MDRD Greater than 90; Glucose 109 mg/dL (80-115); Potassium 3.4 mmol/L (3.5-5.1); Sodium 138 mmol/L (136-145)
[2018-07-31] MEDS: NPH, Human Insulin Isophane 300 UNIT/3 ML VIAL SC SCH (08:37)
[2018-07-31] MEDS: cloNIDine 0.1 MG TAB PO SCH ×3 (08:38→21:05)
[2018-07-31] MEDS: Hydrochlorothiazide 25 MG TAB PO SCH (08:38)
[2018-07-31] MEDS: Lisinopril 20 MG TAB PO SCH ×2 (08:38→21:05)
[2018-07-31] MEDS: Minoxidil 2.5 MG TAB PO SCH ×2 (08:39→21:06)
[2018-07-31] MEDS: Famotidine 20 MG TAB PO SCH ×2 (08:39→21:06)
[2018-07-31] MEDS: Carvedilol 6.25 MG TAB PO SCH ×2 (08:40→21:04)
[2018-07-31] MEDS: Docusate 100 MG CAP PO SCH ×2 (08:40→21:05)
[2018-07-31] MEDS: Potassium Chloride 20 MEQ TAB PO SCH (08:41)
[2018-07-31] MEDS: metFORMIN 500 MG TAB PO SCH ×2 (08:41→21:06)
[2018-07-31] MEDS: Polyethylene Glycol 3350 17 GM Packet PO SCH (08:42)
[2018-07-31] MEDS: HumaLOG 300 UNITS/3 ML VIAL SC PRN (12:11)
--- NOTE | 2018-07-31 13:59 | PDOC.PN ---
- Subjective Encounter Start Date: 07/31/18 Encounter Start Time: 10:00 Subjective: awake, follows verbal stimuli most of the time -: is eating well, moves all extremities but weaker on right side - Objective MAR Reviewed: Yes Vital Signs & Weight: Vital Signs (12 hours) Temp Pulse Resp BP BP Pulse Ox 07/31/18 12:00 98.7 F 73 16 136/76 94 L 07/31/18 08:40 138/70 07/31/18 08:38 138/70 07/31/18 08:00 98.9 F 63 16 138/70 96 07/31/18 04:51 98.3 F 64 16 141/79 H 95 Weight Weight 177 lb 6.4 oz Most Recent Monitor Data Heart Rate from ECG 80 NIBP 127/76 NIBP BP-Mean 93 Respiration from ECG 15 SpO2 100 I&O: 07/30/18 07/31/18 08/01/18 05:59 06:59 06:59 Intake Total 113 Balance 113 Result Diagrams: 07/31/18 05:39 07/31/18 05:39 Additional Labs: Accuchecks 07/31/18 07/31/18 07/30/18 10:47 05:31 21:02 POC Glucose 215 H 106 168 H 07/30/18 16:57 POC Glucose 127 H Phys Exam - Physical Examination HEENT: PERRLA, moist MMs Neck: no JVD, supple Respiratory: no wheezing, no rales Cardiovascular: RRR, no significant murmur Gastrointestinal: soft, non-tender, positive bowel sounds Musculoskeletal: no edema, pulses present right hemiparesis with strength of 3/5 Dx/Plan (1) ICH (intracerebral hemorrhage) Code(s): I61.9 - NONTRAUMATIC INTRACEREBRAL HEMORRHAGE, UNSPECIFIED Status: Acute Qualifiers: Intracerebral hemorrhage etiology: nontraumatic Cerebral hemorrhage location: cerebral hemisphere, unspecified portion Laterality: left Qualified Code(s): I61.2 - Nontraumatic intracerebral hemorrhage in hemisphere, unspecified Comment: left Basal ganglia with intravent extension, right hemiparesis (2) Hypertensive emergency Code(s): I16.1 - HYPERTENSIVE EMERGENCY Status: Resolved (3) Dyslipidemia Code(s): E78.5 - HYPERLIPIDEMIA, UNSPECIFIED Status: Chronic (4) DM type 2 (diabetes mellitus, type 2) Status: Chronic Qualifiers: Diabetes mellitus halfway insulin use: with [employer] use Diabetes mellitus complication status: with hyperglycemia Qualified Code(s): E11.65 - Type 2 diabetes mellitus with hyperglycemia; Z79.4 - custodial (current) use of insulin - Plan neurologically stable, htn well controlled -: is on coreg, clonidine, hctz, lisinopril, minoxidil and lipitor -: nph 10u daily with metformin bid -: awaiting [facility] facility -: PT to mobilize as tolerated * . Review of Systems - Medications/Allergies Allergies/Adverse Reactions: Allergies Allergy/AdvReac Type Severity Reaction Status Date / Time No Known Allergies Allergy Verified 07/27/18 12:52 Medications: Current Medications Atorvastatin Calcium (Lipitor) 80 mg PO [facility] Last Admin: 07/30/18 21:58 Dose: 80 mg Carvedilol (Coreg) 12.5 mg PO BID [facility] Last Admin: 07/31/18 08:40 Dose: 12.5 mg Clonidine (Catapres) 0.1 mg PO TID [facility] Last Admin: 07/31/18 08:38 Dose: 0.1 mg Dextrose/Water (Dextrose 50%) 25 gm SLOW IVP PRN PRN PRN Reason: Hypoglycemia Docusate Sodium (Colace) 100 mg PO BID [facility] Last Admin: 07/31/18 08:40 Dose: Not Given Famotidine (Pepcid) 20 mg PO BID [facility] Last Admin: 07/31/18 08:39 Dose: 20 mg Glucagon (Glucagon) 1 mg IM PRN PRN PRN Reason: Hypoglycemia Hydrochlorothiazide (Hydrochlorothiazide) 25 mg PO DAILY [facility] Last Admin: 07/31/18 08:38 Dose: 25 mg Dextrose/Water (D5w) 1,000 mls @ 0 mls/hr IV .Q0M PRN PRN Reason: Hypoglycemia Insulin Human Lispro (Humalog) 0 units SC .AGGRESSIVE SLIDING PRN PRN Reason: Aggressive Correctional Scale Last Admin: 07/31/18 12:11 Dose: 6 units Insulin Human Lispro (Humalog) 0 units SC .BEDTIME SLIDING SC PRN PRN Reason: Bedtime Correctional Scale Last Admin: 07/28/18 20:24 Dose: 2 unit Insulin Human NPH (Humulin N) 10 unit SC DAILY-[facility] Last Admin: 07/31/18 08:37 Dose: 10 unit Lisinopril (Zestril) 20 mg PO BID [facility] Last Admin: 07/31/18 08:38 Dose: 20 mg Metformin HCl (Glucophage) 500 mg PO BID [facility] Last Admin: 07/31/18 08:41 Dose: 500 mg Minoxidil (Minoxidil) 2.5 mg PO BID [facility] Last Admin: 07/31/18 08:39 Dose: 2.5 mg Polyethylene Glycol (Miralax) 17 gm PO DAILY [facility] Last Admin: 07/31/18 08:42 Dose: Not Given Potassium Chloride (K-Dur) 20 meq PO QAM-WM [facility] Last Admin: 07/31/18 08:41 Dose: 20 meq Sodium Chloride (Flush - Normal Saline) 10 ml IVF Q12HR [facility] Last Admin: 07/31/18 08:42 Dose: 10 ml Sodium Chloride (Flush - Normal Saline) 10 ml IVF PRN PRN PRN Reason: Saline Flush
[2018-07-31] MEDS: Atorvastatin Calcium 40 MG TAB PO SCH (21:05)
[2018-08-01] MEDS ORDERED: cloNIDine 0.1 MG TAB PO PRN (00:31)
[2018-08-01 06:06] LABS: #Basophils 0.1 thou/uL (0.0-0.2); #Eosinphils 0.1 thou/uL (0.0-0.7); #Lymphocytes 1.2 thou/uL (1.20-3.40); #Monocytes 0.6 thou/uL (0.11-0.59); #Neutrophils 3.6 thou/uL (1.40-6.50); %Eosinophils 1.4 % (0.0-10.0); %Lymphocytes 21.5 % (21.0-51.0); %Monocytes 10.9 % (0.0-10.0); %Neutrophils 65.2 % (42.0-75.0); Hemoglobin 12.9 g/dL (14.0-18.0); Mean Corpuscular HGB CONC 30.2 g/dL (32.0-36.0); Mean Corpuscular Hemoglobin 26.3 pg (27.0-31.0); Mean Platelet Volume 7.5 fL (7.4-10.4); Platelet Count 185 thou/uL (130-400); RBC Distribution Width 11.9 % (11.5-14.5); Red Blood Cell (RBC) Count 4.91 mill/uL (4.70-6.10); White Blood Cell (WBC) Count 5.5 thou/uL (4.8-10.8)
[2018-08-01 06:25] LABS: Anion Gap 11 mmol/L (10-20); BUN (Urea Nitrogen) 13 mg/dL (8.4-25.7); Calc. Creatinine Clearance 102 mL/min (70-130); Calcium 8.5 mg/dL (7.8-10.44); Carbon Dioxide 27 mmol/L (23-31); Cardiac Risk 3.8 (Less than 4.5); Chloride 103 mmol/L (98-107); Cholesterol 92 mg/dl (< 200 Desired); Estimated GFR-MDRD Greater than 90; Glucose 115 mg/dL (80-115); HDL Cholesterol 24 mg/dL (>60 Neg Risk); LDL Cholesterol, Calculated 54 mg/dL; Potassium 3.3 mmol/L (3.5-5.1); Sodium 138 mmol/L (136-145); Triglycerides 69 mg/dL (Less than 150)
[2018-08-01] MEDS: Carvedilol 6.25 MG TAB PO SCH ×2 (08:02→21:03)
[2018-08-01] MEDS: Lisinopril 20 MG TAB PO SCH ×2 (08:02→21:04)
[2018-08-01] MEDS: cloNIDine 0.1 MG TAB PO SCH ×3 (08:03→21:04)
[2018-08-01] MEDS: Potassium Chloride 20 MEQ TAB PO SCH (08:03)
[2018-08-01] MEDS: Famotidine 20 MG TAB PO SCH ×2 (08:03→21:03)
[2018-08-01] MEDS: Minoxidil 2.5 MG TAB PO SCH ×2 (08:04→21:04)
[2018-08-01] MEDS: Docusate 100 MG CAP PO SCH ×2 (08:04→21:04)
[2018-08-01] MEDS: Polyethylene Glycol 3350 17 GM Packet PO SCH (08:04)
[2018-08-01] MEDS: Hydrochlorothiazide 25 MG TAB PO SCH (08:04)
[2018-08-01] MEDS: metFORMIN 500 MG TAB PO SCH ×2 (08:39→21:04)
[2018-08-01] MEDS: NPH, Human Insulin Isophane 300 UNIT/3 ML VIAL SC SCH (08:39)
[2018-08-01 13:13] VITALS: BMI 22.6
--- NOTE | 2018-08-01 14:42 | CT ---
CT BRAIN WITHOUT CONTRAST: INDICATIONS: History of right leg weakness. Lethargy. COMPARISON: CT brain dated 07/28/2018. FINDINGS: The left thalamic intraparenchymal hemorrhage is stable. The intraventricular hemorrhage has diminis hed. There is no hydrocephalus. No midline shift is present. Chronic small vessel white matter isc hemic change is similar appearing. The basilar cisterns are patent. The mastoid air cells are clear . The paranasal sinuses are clear. The skull is intact. IMPRESSION: 1. Stable intraparenchymal hemorrhage within the left thalamus. 2. Near complete resolution of the intraventricular hemorrhage. No tammie hydrocephalus is present. 3. Stable chronic ischemic change. POS: [facility]
[2018-08-01] MEDS: HumaLOG 300 UNITS/3 ML VIAL SC PRN (15:11)
[2018-08-01] MEDS ORDERED: hydrALAZINE 20 MG/ML VIAL SLOW IVP SCH (17:45)
--- NOTE | 2018-08-01 18:29 | PDOC.PN ---
- Subjective Encounter Start Date: 08/01/18 Encounter Start Time: 18:27 Subjective: no complains, has questions about his medical condition - Objective Vital Signs & Weight: Vital Signs (12 hours) Temp Pulse Pulse Resp BP BP BP 08/01/18 17:30 08/01/18 15:46 99.0 F 71 16 08/01/18 15:12 136/79 08/01/18 13:35 67 126/67 136/75 08/01/18 11:42 98.3 F 67 16 08/01/18 09:45 08/01/18 08:03 167/83 H 08/01/18 08:02 167/83 H 08/01/18 08:00 08/01/18 07:49 98.3 F 61 18 BP BP Pulse Ox 08/01/18 17:30 156/82 H 08/01/18 15:46 157/79 H 94 L 08/01/18 15:12 08/01/18 13:35 08/01/18 11:42 136/79 95 08/01/18 09:45 133/74 08/01/18 08:03 08/01/18 08:02 08/01/18 08:00 93 L 08/01/18 07:49 167/83 H 93 L Weight Weight 171 lb 3.2 oz Most Recent Monitor Data Heart Rate from ECG 80 NIBP 127/76 NIBP BP-Mean 93 Respiration from ECG 15 SpO2 100 I&O: 07/31/18 08/01/18 08/02/18 06:59 06:59 06:59 Intake Total 611 358 Output Total 405 Balance 206 358 Result Diagrams: 08/01/18 05:25 08/01/18 05:25 Additional Labs: Accuchecks 08/01/18 08/01/18 08/01/18 17:36 11:12 08:00 POC Glucose 98 204 H 116 H 08/01/18 07/31/18 05:50 20:20 POC Glucose 121 H 142 H Phys Exam - Physical Examination HEENT: PERRLA, moist MMs, sclera anicteric, TM's clear, oral pharynx no lesions , 2+ tonsils Neck: no nodes, no JVD, supple, full ROM Respiratory: no wheezing, no rales, no rhonchi Cardiovascular: RRR, no significant murmur, no rub Gastrointestinal: soft, non-tender, no distention, positive bowel sounds Musculoskeletal: no edema, pulses present right sided weakness Dx/Plan (1) ICH (intracerebral hemorrhage) Code(s): I61.9 - NONTRAUMATIC INTRACEREBRAL HEMORRHAGE, UNSPECIFIED Status: Acute Qualifiers: Intracerebral hemorrhage etiology: nontraumatic Cerebral hemorrhage location: cerebral hemisphere, unspecified portion Laterality: left Qualified Code(s): I61.2 - Nontraumatic intracerebral hemorrhage in hemisphere, unspecified Comment: left Basal ganglia with intravent extension, right hemiparesis (2) DM type 2 (diabetes mellitus, type 2) Status: Chronic Qualifiers: Diabetes mellitus chcf insulin use: with chcf use Diabetes mellitus complication status: with hyperglycemia Qualified Code(s): E11.65 - Type 2 diabetes mellitus with hyperglycemia; Z79.4 - custodial (current) use of insulin (3) Dyslipidemia Code(s): E78.5 - HYPERLIPIDEMIA, UNSPECIFIED Status: Chronic (4) Hypertensive emergency Code(s): I16.1 - HYPERTENSIVE EMERGENCY Status: Resolved - Plan cont current plan of care, PT/OT, licensed social worker, DVT proph w/SCDs * .
[2018-08-01] MEDS: Atorvastatin Calcium 40 MG TAB PO SCH (21:03)
[2018-08-02 05:49] LABS: #Eosinphils 0.1 thou/uL (0.0-0.7); #Lymphocytes 1.2 thou/uL (1.20-3.40); #Monocytes 0.6 thou/uL (0.11-0.59); #Neutrophils 3.1 thou/uL (1.40-6.50); %Basophils 0.4 % (0.0-1.0); %Lymphocytes 23.8 % (21.0-51.0); %Monocytes 12.4 % (0.0-10.0); %Neutrophils 61.3 % (42.0-75.0); Hemoglobin 13.1 g/dL (14.0-18.0); Mean Corpuscular HGB CONC 33.9 g/dL (32.0-36.0); Mean Corpuscular Hemoglobin 28.5 pg (27.0-31.0); Mean Corpuscular Volume 83.9 fL (78.0-98.0); Mean Platelet Volume 7.9 fL (7.4-10.4); Platelet Count 176 thou/uL (130-400); RBC Distribution Width 11.9 % (11.5-14.5); Red Blood Cell (RBC) Count 4.59 mill/uL (4.70-6.10); White Blood Cell (WBC) Count 5.1 thou/uL (4.8-10.8)
[2018-08-02 06:05] LABS: Anion Gap 12 mmol/L (10-20); BUN (Urea Nitrogen) 13 mg/dL (8.4-25.7); Calc. Creatinine Clearance 111 mL/min (70-130); Calcium 8.7 mg/dL (7.8-10.44); Carbon Dioxide 27 mmol/L (23-31); Chloride 103 mmol/L (98-107); Estimated GFR-MDRD Greater than 90; Glucose 115 mg/dL (80-115); Potassium 3.5 mmol/L (3.5-5.1); Sodium 138 mmol/L (136-145)
[2018-08-02] MEDS: NPH, Human Insulin Isophane 300 UNIT/3 ML VIAL SC SCH (06:49)
[2018-08-02] MEDS: Carvedilol 6.25 MG TAB PO SCH (08:30)
[2018-08-02] MEDS: Famotidine 20 MG TAB PO SCH (08:30)
[2018-08-02] MEDS: Hydrochlorothiazide 25 MG TAB PO SCH (08:30)
[2018-08-02] MEDS: cloNIDine 0.1 MG TAB PO SCH ×2 (08:30→15:16)
[2018-08-02] MEDS: Lisinopril 20 MG TAB PO SCH (08:30)
[2018-08-02] MEDS: Potassium Chloride 20 MEQ TAB PO SCH (08:31)
[2018-08-02] MEDS: Polyethylene Glycol 3350 17 GM Packet PO SCH (08:31)
[2018-08-02] MEDS: Minoxidil 2.5 MG TAB PO SCH (08:31)
[2018-08-02] MEDS: Docusate 100 MG CAP PO SCH (08:31)
[2018-08-02] MEDS: metFORMIN 500 MG TAB PO SCH (08:38)
[2018-08-02] MEDS: HumaLOG 300 UNITS/3 ML VIAL SC PRN ×2 (12:14→17:18)
[2018-08-02 15:17] VITALS: BP 139/84
[2018-08-02 16:11] VITALS: TEMP 97.6
--- NOTE | 2018-08-03 05:10 | DIS ---
DATE OF ADMISSION: 07/27/2018 DATE OF DISCHARGE: 08/02/2018 ADMISSION DIAGNOSES: 1. Hemorrhagic cerebrovascular accident. 2. Hypertension. 3. Diabetes. 4. Hepatitis C. 5. Osteoarthritis. DISCHARGE DIAGNOSES: 1. Hemorrhagic cerebrovascular accident. 2. Hypertension. 3. Diabetes. 4. Hepatitis C. 5. Osteoarthritis. HISTORY OF PRESENTING ILLNESS: This is a 68-year-old male who was brought in by the skilled nursing when he was noticed to be altered and confused. The patient has a history of noncompliance with his blood pressure medications. The patient usually his baseline is alert and oriented x3 even though he has a history of CVA in the past. The patient also was found to be having a blood pressure of 220/114 when the EMS arrived. He was treated emergently with 1 inch nitroglycerin paste and also 10 mg IV labetalol, which brought his blood pressure down to 160/94. The patient was brought to the ER, and on further evaluation, CT of the head showed hemorrhagic CVA. It showed left basal ganglia hemorrhage with intraventricular extension of hemorrhage, possibly likely due to hypertension. The patient was further admitted for control of BP and also for physical therapy and speech evaluations. The patient did well with physical therapy and efforts were made to keep his blood pressure systolics below 140. The echo while here showed an ejection fraction of 55 to 60 with borderline concentric left ventricular hypertrophy. The patient did well with physical therapy, was able to walk, also eats his food with no difficulties. The patient was then discharged to [facility] for this continued rehabilitation. DISCHARGE INSTRUCTIONS: 1. The patient was instructed to follow up with physical therapy and continue to undergo the treatment. 2. Take medications as prescribed. 3. Heart healthy diet. 4. Follow up with his primary care physician. Job ID: [id number]
== END 2018-08-02 19:15 | DRG 65 ==
LOC: ERS 10:36 → EEVIPCON 10:55 → CCU 10:55 → 2SE 07-29 03:12
PROVIDERS: ADMIT Surgery; ATTEND Surgery
DX: I61.0 Nontraumatic intracerebral hemorrhage in hemisphere, subcortical (principal); G81.91 Hemiplegia, unspecified affecting right dominant side; R47.01 Aphasia; I16.1 Hypertensive emergency; E11.65 Type 2 diabetes mellitus with hyperglycemia; I10 Essential (primary) hypertension; B18.2 Chronic viral hepatitis C; E78.5 Hyperlipidemia, unspecified; M19.90 Unspecified osteoarthritis, unspecified site; Z91.14 Patient's other noncompliance with medication regimen; Z79.02 Long term (current) use of antithrombotics/antiplatelets; Z79.82 Long term (current) use of aspirin; Z79.4 Long term (current) use of insulin; Z79.899 Other long term (current) drug therapy
CPT/HCPCS: 36415; 36416; 70450; 80048; 80053; 80061; 80307; 83036; 84484; 85025; 85610; 85730; 93005; 93306; 96365; 96366; J0360; J1815; J7050; S0028